=== PATIENT | female | born 1990 | race Hispanic/Latino ===

== ENCOUNTER 2022-07-17 13:00 | Emergency (ER) | payer OTHER, SELFPAY ==
[2022-07-17] MEDS ORDERED: Ketorolac Tromethamine 30 MG/ML VIAL ONE (14:45)
[2022-07-17] MEDS ORDERED: Dexamethasone 4 mg/ml Vial ONE (14:47)
[2022-07-17 15:43] LABS: MONO NEGATIVE CONTROL ZONE White (Negative) (White); MONO POSITIVE CONTROL Pink Line (Positive) (PINK/RED); Mononucleosis NEGATIVE (NEGATIVE)
== END 2022-07-17 16:30 | disposition home or self-care (01) ==
LOC: CSHERS 13:00
DX: J02.9 Acute pharyngitis, unspecified (principal)
CPT/HCPCS: 86308; 96372; 99283; J1100; J1885